=== PATIENT | male | born 1975 | race Two or more races ===

== ENCOUNTER 2017-03-10 14:52 | Emergency (ER) | payer MEDICAID ==
[2017-03-10] MEDS ORDERED: Albuterol/Ipratropium 3.0-0.5 MG/3 ML Neb Soln NEB ONE (15:05)
--- NOTE | 2017-03-10 15:13 | EDM.PDOC ---
ED HPI GENERAL MEDICAL PROBLEM - General Chief Complaint: Respiratory Problem Stated Complaint: ASTHMA ATTACK Time Seen by Provider: 03/10/17 15:09 Source of Information: Reports: Patient History Limitations: Reports: No Limitations - History of Present Illness INITIAL COMMENTS - FREE TEXT/NARRATIVE: HISTORY AND PHYSICAL: Asthma History of present illness: 42-year-old male that presents to the emergency room today with complaints of dyspnea. Patient reports he has a history of asthma and she takes montelukast and uses an inhaler, both of which he is currently out of. Reports he was driving by a construction and symptoms started to present. Denies any chest pain. Review of systems: As per history of present illness and below otherwise all systems reviewed and negative. Past medical history: As per history of present illness and as reviewed below otherwise noncontributory. Surgical history: As per history of present illness and as reviewed below otherwise noncontributory. Social history: No reported history of drug or alcohol abuse. Family history: As per history of present illness and as reviewed below otherwise noncontributory. Physical exam: Gen.: Nontoxic appearing 42-year-old male. Able to speak in full sentences without shortness of breath. Answers questions appropriately. Alert and oriented HEENT: Atraumatic, normocephalic, pupils reactive, negative for conjunctival pallor or scleral icterus, mucous membranes moist, throat clear, neck supple, nontender, trachea midline. No lymphadenopathy Lungs: Fine expiratory wheezing posterior bilateral bases, breath sounds equal bilaterally, chest nontender. Heart: S1S2, regular, negative for clicks, rubs, or JVD. Abdomen: Soft, nondistended, nontender. Negative for masses or hepatosplenomegaly. Negative for costovertebral tenderness. Pelvis: Stable nontender. Genitourinary: Deferred. Rectal: Deferred. Extremities: Atraumatic, negative for cords or calf pain. Neurovascular unremarkable. Neuro: Awake, alert, oriented. Cranial nerves II through XII unremarkable. Cerebellum unremarkable. Motor and sensory unremarkable throughout. Exam nonfocal. Diagnostics: [] Therapeutics: Breathing treatment Impression: 1. Asthma Plan: 1. Please take your Medrol Dose Pack as prescribed. 2. Your asthma control medications were refilled. Please establish care with a primary care provider in follow-up within the next 1-2 days. 3. Return to the ED as needed as discussed Definitive disposition and diagnosis as appropriate pending reevaluation and review of above. Onset: Today - Related Data Allergies Allergy/AdvReac Type Severity Reaction Status Date / Time No Known Allergies Allergy Verified 03/10/17 15:09 Home Meds: Home Meds Mometasone/Formoterol [Dulera 100-5 MCG] 2 puff INH DAILY 03/10/17 [History] Montelukast Sodium [Singulair] 1 tab PO DAILY 03/10/17 [History] ED ROS GENERAL - Review of Systems Review Of Systems: See Below ED EXAM, GENERAL - Physical Exam Exam: See Below (See dictation) Course - Vital Signs Last Recorded V/S: Last Vital Signs Temp 36.3 C 03/10/17 15:02 Pulse 95 03/10/17 15:02 Resp 20 03/10/17 15:02 BP 117/71 03/10/17 15:02 Pulse Ox 96 03/10/17 15:02 - Orders/Labs/Meds Orders: Active Orders 24 hr Category Date Time Status RT Aerosol Therapy [RC] ASDIRECTED Care 03/10/17 15:05 Active Meds: Medications Discontinued Medications Generic Name Dose Route Start Last Admin Trade Name Freq PRN Reason Stop Dose Admin Albuterol/Ipratropium 3 ml 03/10/17 15:05 03/10/17 15:19 Duoneb 3.0-0.5 Mg/3 Ml NEB 03/10/17 15:06 3 ml ONETIME ONE Administration Departure - Departure Time of Disposition: 15:22 Disposition: Home, Self-Care 01 Condition: Good Clinical Impression: Asthma Qualifiers: Asthma severity: mild persistent Asthma complication type: uncomplicated Qualified Code(s): J45.30 - Mild persistent asthma, uncomplicated - Discharge Information Referrals: PCP,None [Primary Care Provider] - Forms: ED Department Discharge Additional Instructions: The following information is given to patients seen in the emergency department who are being discharged to home. This information is to outline your options for follow-up care. We provide all patients seen in our emergency department with a follow-up referral. The need for follow-up, as well as the timing and circumstances, are variable depending upon the specifics of your emergency department visit. If you don't have a primary care physician on staff, we will provide you with a referral. We always advise you to contact your personal physician following an emergency department visit to inform them of the circumstance of the visit and for follow-up with them and/or the need for any referrals to a consulting specialist. The emergency department will also refer you to a specialist when appropriate. This referral assures that you have the opportunity for followup care with a specialist. All of these measure are taken in an effort to provide you with optimal care, which includes your followup. Under all circumstances we always encourage you to contact your private physician who remains a resource for coordinating your care. When calling for followup care, please make the office aware that this follow-up is from your recent emergency room visit. If for any reason you are refused follow-up, please contact the [facility] emergency department at and asked to speak to the emergency department charge nurse. [facility] [address] [place] [id number] 1. Please take your Medrol Dose Pack as prescribed. 2. Your asthma control medications were refilled. Please establish care with a primary care provider in follow-up within the next 1-2 days. 3. Return to the ED as needed as discussed - My Orders Last 24 Hours: My Active Orders 03/10/17 15:05 RT Aerosol Therapy [RC] ASDIRECTED - Assessment/Plan Last 24 Hours: My Active Orders 03/10/17 15:05 RT Aerosol Therapy [RC] ASDIRECTED
[2017-03-10 17:21] VITALS: BP 116/73
== END 2017-03-10 15:43 | disposition home or self-care (01) ==
LOC: MW.ED 14:52
DX: J45.30 Mild persistent asthma, uncomplicated (principal); Z79.899 Other long term (current) drug therapy
CPT/HCPCS: 94664; 99284; 99284-25